=== PATIENT | male | born 1970 | race Caucasian/White ===

== ENCOUNTER 2017-09-01 11:43 | Emergency (ER) | payer OTHER ==
[~2017-09-01] VITALS: Ht 167.6 cm; Wt 78.0 kg
[2017-09-01] MEDS ORDERED: KEFLEX500 M1 PO (12:05)
[2017-09-01 12:43] VITALS: BP 129/78
== END 2017-09-01 12:43 | disposition home or self-care (01) | DRG 605 ==
LOC: ED 11:43
PROC: 0HQ0XZZ Repair Scalp Skin, External Approach (ICD-10-PCS; principal; 2017-09-01)
DX: S01.01XA Laceration without foreign body of scalp, initial encounter (principal); W22.8XXA Striking against or struck by other objects, initial encounter; Y93.89 Activity, other specified; Y92.74 Orchard as the place of occurrence of the external cause; Y99.0 Civilian activity done for income or pay

== ENCOUNTER 2017-09-10 20:31 | Emergency (ER) | payer OTHER ==
[~2017-09-10] VITALS: Ht 167.6 cm; Wt 86.2 kg
[~2017-09-10 20:31] MED LIST: KEFLEX500 M1 PO
[2017-09-10 21:00] VITALS: BP 140/84
== END 2017-09-10 20:55 | disposition home or self-care (01) | DRG 950 ==
LOC: ED 20:31
DX: S01.01XD Laceration without foreign body of scalp, subsequent encounter (principal)